=== PATIENT | male | born 1975 | race Hispanic/Latino ===

== ENCOUNTER 2024-04-27 17:55 | Emergency (ER) | payer SELFPAY ==
[~2024-04-27] VITALS: Ht 167.6 cm; Wt 93.0 kg
[2024-04-27 18:13] VITALS: PULSE 102; RESP 16; TEMP 102.5
[2024-04-27] MEDS ORDERED: ACETAMINOPHEN 325 MG TAB ONE (18:19)
[2024-04-27] MEDS: ACETAMINOPHEN 325 MG TAB PO ONE (18:33)
[2024-04-27 18:44] LABS: STREPTOCOCCUS GRP A ANTIGEN POSITIVE (NEGATIVE)
[2024-04-27 18:54] LABS: CORONAVIRUS COVID-19 AG NEGATIVE (NEGATIVE); INFLUENZA A AG POSITIVE (NEGATIVE); INFLUENZA B AG NEGATIVE (NEGATIVE)
[2024-04-27] MEDS ORDERED: AMOX TR-K CLV1 EAC2 PO (20:03)
[2024-04-27 20:11] VITALS: BP 155/91; PULSE 87; RESP 17; TEMP 100.4; O2SAT 99
== END 2024-04-27 20:12 | disposition home or self-care (01) ==
LOC: ER 18:23
DX: R50.9 Fever, unspecified (principal); J10.1 Influenza due to other identified influenza virus with other respiratory manifestations; J02.0 Streptococcal pharyngitis; I10 Essential (primary) hypertension; Z11.52 Encounter for screening for COVID-19
CPT/HCPCS: 71045; 83518; 99283

== ENCOUNTER 2024-09-05 20:39 | Emergency (ER) | payer SELFPAY ==
[~2024-09-05] VITALS: Ht 167.6 cm; Wt 89.8 kg
[~2024-09-05 20:39] MED LIST: AMOX TR-K CLV1 EAC2 PO
[2024-09-05 21:43] VITALS: PULSE 94; RESP 18; TEMP 98.4; O2SAT 100
[2024-09-05] MEDS ORDERED: FLUORESCEIN SOD(OPTH) 1 MG STRP ONE (21:53)
[2024-09-05] MEDS ORDERED: TETRACAINE HCL 0.5% OPTH SOLN 4 ML BTL ONE (21:53)
[2024-09-05] MEDS: TETRACAINE HCL 0.5% OPTH SOLN 4 ML BTL OP ONE (21:57)
[2024-09-05] MEDS ORDERED: ULTRAM 50MG50 MG PO (22:05)
[2024-09-05] MEDS ORDERED: CILOXAN3.5 GM OS (22:06)
[2024-09-06] MEDS ORDERED: LOSARTAN POTASS25 MG PO (15:08)
== END 2024-09-05 22:08 | disposition home or self-care (01) ==
LOC: ER 21:48
DX: H57.12 Ocular pain, left eye (principal); H16.002 Unspecified corneal ulcer, left eye; R11.2 Nausea with vomiting, unspecified; I10 Essential (primary) hypertension
CPT/HCPCS: 99283

== ENCOUNTER 2024-09-06 12:29 | Emergency (ER) | payer SELFPAY ==
[~2024-09-06] VITALS: Ht 167.6 cm; Wt 89.8 kg
[~2024-09-06 12:29] MED LIST changes: +CILOXAN3.5 GM OS; +ULTRAM 50MG50 MG PO
[2024-09-06 12:48] VITALS: TEMP 98.5
[2024-09-06 13:49] VITALS: BP 194/96
[2024-09-06] MEDS: CLONIDINE HCL 0.1 MG TAB PO ONE (13:49)
[2024-09-06] MEDS: ONDANSETRON HCL INJ 2MG/ML 2ML 2 MG/ML VIAL IV STA (13:49)
[2024-09-06] MEDS: SODIUM CHLORIDE 0.9% 1000ML 1,000 ML IV STA (13:50)
[2024-09-06 13:52] LABS: BASOPHILS % 0.4 % (0.0-1.0); EOSINOPHILS % 0.1 % (0.0-6.0); HEMATOCRIT 40.4 % (38.2-49.6); HEMOGLOBIN 14.6 g/dL (14.0-18.0); LYMPHOCYTES # (AUTO) 1.1 (1.0-3.2); LYMPHOCYTES % 15.1 % (18.0-39.1); MEAN CORPUSCULAR HEMOGLOBIN 29.1 pg (28-32); MEAN CORPUSCULAR HGB CONC 36.1 g/dL (31-35); MEAN CORPUSCULAR VOLUME 80.6 fL (81-99); MONOCYTES # (AUTO) 0.4 (0.2-0.8); MONOCYTES % 5.3 % (4.4-11.3); NEUTROPHILS # (AUTO) 5.8 (2.1-6.9); NEUTROPHILS % 78.8 % (38.7-80.0); PLATELET COUNT 297 x10e3/uL (140-360); RED BLOOD COUNT 5.01 x10e6/uL (4.3-5.7); RED CELL DISTRIBUTION WIDTH 12.4 % (11.7-14.4)
[2024-09-06 14:07] LABS: INR 0.96; PROTHROMBIN TIME 13.4 seconds (11.9-14.5)
[2024-09-06 14:08] LABS: PARTIAL THROMBOPLASTIN TIME 24.2 seconds (23.8-35.5)
[2024-09-06 14:16] LABS: ALANINE AMINOTRANSFERASE 10 IU/L (0-55); ALBUMIN 2.6 g/dL (3.5-5.0); ALBUMIN/GLOBULIN RATIO 0.6 (0.8-2.0); ALKALINE PHOSPHATASE 74 IU/L (40-150); ANION GAP 13.3 mmol/L (8-16); BILIRUBIN,TOTAL 0.5 mg/dL (0.2-1.2); BLOOD UREA NITROGEN 12 mg/dL (7-26); BUN/CREATININE RATIO 11 (6-25); CALCIUM 8.5 mg/dL (8.4-10.2); CARBON DIOXIDE 26 mmol/L (22-29); CHLORIDE 99 mmol/L (98-107); CREATININE, SERUM 1.09 mg/dL (0.72-1.25); EST GLOMERULAR FILTRATION RATE 82 ML/MIN (>=60); GLUCOSE 336 mg/dL (74-118); MAGNESIUM 1.8 MG/DL (1.3-2.1); POTASSIUM 4.3 mmol/L (3.5-5.1); SODIUM 134 mmol/L (136-145); TOTAL PROTEIN 6.9 g/dL (6.5-8.1)
[2024-09-06 14:24] LABS: TROPONIN I < 0.001 ng/mL (0-0.300)
[2024-09-06] MEDS ORDERED: CIPROFLOXACIN HCL (OPTH OINT) 3.5 GM TUBE OP ONE (15:00)
[2024-09-06] MEDS ORDERED: LOSARTAN POTASS25 MG PO (15:08)
[2024-09-06 15:25] VITALS: PULSE 84; RESP 18; O2SAT 99
== END 2024-09-06 15:30 | disposition home or self-care (01) ==
LOC: ER 13:00
DX: R11.2 Nausea with vomiting, unspecified (principal); I10 Essential (primary) hypertension; E11.65 Type 2 diabetes mellitus with hyperglycemia; S05.02XA Injury of conjunctiva and corneal abrasion without foreign body, left eye, initial encounter; R94.31 Abnormal electrocardiogram [ECG] [EKG]
CPT/HCPCS: 36415; 71045; 80053; 83735; 84484; 85025; 85610; 85730; 93005; 99284; J2405; J7030